=== PATIENT | male | born 1935 | race Caucasian/White ===

== ENCOUNTER 2019-07-11 17:06 | Inpatient (IN) | payer OTHER, MEDICARE ==
[~2019-07-11 17:06] MED LIST: CEFEPIME HCL/D5W 2 GM/50 ML BAG IVPB ONE
--- NOTE | 2019-07-11 17:42 | PDOC ---
History of Present Illness - General Chief Complaint: Respiratory Distress Stated Complaint: PNEUMONIA Time Seen by Provider: 07/11/19 17:41 - History of Present Illness Initial Comments: 07/11/19 20:54 83 year old man with no pmhx who presents with 2 weeks of cough productive of porter phlegm, congestion, shortness of breath. Took a zpak 1 week ago with some improvement of symptoms but then worsening shortness of breath today. Went to [facility] urgent care and had cxr that showed pneumonia and was told to come to the ED. The patient denies any fever, denies chest pain, n/v/d/c or abd pain. ROS GENERAL/CONSTITUTIONAL: No fever or chills. No weakness. HEAD, EYES, EARS, NOSE AND THROAT: No change in vision. No ear pain or discharge. No sore throat. CARDIOVASCULAR: No chest pain , +shortness of breath RESPIRATORY: + cough, No wheezing, or hemoptysis. GASTROINTESTINAL: No nausea, vomiting, diarrhea or constipation. GENITOURINARY: No dysuria, frequency, or change in urination. MUSCULOSKELETAL: No joint or muscle swelling or pain. No neck or back pain. SKIN: No rash NEUROLOGIC: No headache, vertigo, loss of consciousness, or change in strength/ sensation. PE GENERAL: Awake, alert, and fully oriented, in no acute distress HEAD: No signs of trauma, normocephalic, atraumatic EYES: EOMI, sclera anicteric, conjunctiva clear ENT: oropharynx clear without exudates. Moist mucosa NECK: Normal ROM, supple LUNGS: No distress, speaks full sentences, + decreased breath sounds on the R side HEART: Regular rate and rhythm, normal S1 and S2, no murmurs, rubs or gallops, peripheral pulses normal and equal bilaterally. ABDOMEN: Soft, nontender. No guarding, no rebound. No masses EXTREMITIES : Normal inspection, Normal range of motion, no edema. No clubbing or cyanosis. NEUROLOGICAL: Cranial nerves II through XII grossly intact. Normal speech, no focal sensorimotor deficits SKIN: Warm, Dry, normal turgor, no rashes or lesions noted MDM DDX including but not limited to: pna ED Course: Sisi Owusu, PGY2 Emergency Medicine 07/11/19 22:11 Past History - Past Medical History Allergies/Adverse Reactions: Allergies Allergy/AdvReac Type Severity Reaction Status Date / Time Penicillins AdvReac Severe Difficulty Verified 08/08/16 13:21 Breathing Home Medications: Ambulatory Orders Aspirin [ASA -] 81 mg PO DAILY 08/08/16 COPD: No - Immunization History Immunization Up to Date: No - Psycho Social/Smoking Cessation Hx Smoking History: Never smoked Have you smoked in the past 12 months: No Hx Alcohol Use: Yes (socially) Drug/Substance Use Hx: No Substance Use Type: None *Physical Exam - Vital Signs Last Vital Signs Temp Pulse Resp BP Pulse Ox 98.8 F 98 H 30 H 129/79 93 L 07/11/19 17:15 07/11/19 17:15 07/11/19 17:15 07/11/19 17:15 07/11/19 17:15 ED Treatment Course - LABORATORY CBC & Chemistry Diagram: 07/11/19 18:15 07/11/19 18:15
--- NOTE | 2019-07-11 18:16 | PDOC ---
Attending Attestation - Resident Resident Name: Sisi Owusu - ED Attending Attestation I have performed the following: I have examined & evaluated the patient, The case was reviewed & discussed with the resident, I agree w/resident's findings & plan - HPI HPI: 07/11/19 18:26 83yo male with cough x 1.5 weeks. Treated with a zpak as outpt last weekend. States drinking chicken noodle soup all week without improvement. Today less coughing, but still not feeling better so he went to urgent care that told him he had pna on cxr and sent him to the ER for iv abx given pt had already been treated with oral abx for this infection. Pt denies f/c. NO cp. States sob today improved. Pt denies rhinorrhea or sore throat. No abd pain. No n/v/d. No dysuria. No other complaints. Pt speaking in full clear symptoms. - Physicial Exam PE: 07/11/19 18:28 Gen: aaox3, nad heart: +s1s2 reg lungs: wheezing L base abd: soft, nt/nd +bs ext: no c/c/e - Medical Decision Making 07/11/19 18:29 a/p: 83yo male with pna that failed outpt therapy -will send labs, cultures -will give nebs for wheezing -will start iv abx -will monitor and reassess 07/11/19 18:56 cxr shows RLL infiltrate 07/11/19 18:57 no elevated wbc cefepime and vanco ordered microblog sent to [facility] for admission 07/11/19 19:17 pt will be admitted for pna that failed outpt therapy Heart Score/ECG Review - ECG Intrepretation Comment:: 07/11/19 18:26 sinus at 93, nl axis, nl interval, no acute st/t wave findings
[2019-07-11] MEDS ORDERED: ALBUTEROL SO4 2.5/IPRATROPIUM 0.5 INH SOL 3 ML VIAL.NEB. NEB ONE ×2 (18:25→18:42)
[2019-07-11 18:45] LABS: VENOUS PC02 40.7 mmHg (38-52); VENOUS PH 7.41 (7.31-7.41)
[2019-07-11 18:46] LABS: BASO % 0.4 % (0-2.0); EOS % 0.3 % (0-4.5); HEMATOCRIT 37.3 % (35.4-49); LYMPH % 7.8 % (8-40); MEAN CELL VOLUME 97.1 fl (80-96); MEAN PLT VOLUME 7.3 fl (7.5-11.1); MONO % 6.2 % (3.8-10.2); NEUT % 85.3 % (42.8-82.8); PLATELET COUNT 418 K/MM3 (134-434); RBC 3.84 M/mm3 (4.00-5.60); RDW 13.1 % (11.9-15.9); WHITE BLOOD COUNT 9.2 K/mm3 (4.0-10.0)
[2019-07-11 18:47] LABS: VENOUS PO2 < 49 mmHg (28-48)
[2019-07-11] MEDS ORDERED: CEFEPIME HCL/D5W 2 GM/50 ML BAG IVPB ONE (19:04)
[2019-07-11] MEDS ORDERED: VANCOMYCIN 1 GM PREMIX - 1 GM/200 ML BAG IVPB ONE (19:04)
[2019-07-11 19:17] LABS: ALBUMIN 2.7 g/dl (3.4-5.0); BILIRUBIN,TOTAL 0.5 mg/dL (0.2-1); BLOOD UREA NITROGEN 22.9 mg/dL (7-18); CREATININE 1.1 mg/dL (0.55-1.3); POTASSIUM 3.9 mmol/L (3.5-5.1); TOT PROT 6.6 g/dl (6.4-8.2)
[2019-07-11] MEDS ORDERED: CEFEPIME 2 GM/100 ML BAG IVPB ONE (19:40)
[2019-07-11] MEDS ORDERED: VANCOMYCIN 1 GRAM (PRE-DOCKED) 1,000 MG/250 ML BAG IVPB ONE (19:40)
[2019-07-11] MEDS ORDERED: ALBUTEROL SO4 0.083% IH SOL 2.5 MG/3 ML VIAL.NEB. NEB PRN (20:36)
--- NOTE | 2019-07-11 20:40 | HP ---
CHIEF COMPLAINT: shortness of breath and cough PCP: HISTORY OF PRESENT ILLNESS: Patient is a 83 y/o male with no past medical history who presents for cough and feeling run down. Patient has been having this productive cough for two weeks. Last week patient received a zpak but his symptoms did not resolve. Patient went to urgent care today has an xray done, was told he had a pneumonia. Patient denies fevers, chills, nausea, or vomiting. Only has a persistent cough. no recent travel. ER course was notable for: (1) Cefepime, Vanc (2) (3) Recent Travel: denies PAST MEDICAL HISTORY: denies PAST SURGICAL HISTORY: 9 retinal tear surgeries Social History: Smoking: denies Alcohol: socially drinks wine Drugs: denies Allergies Penicillins Adverse Reaction (Severe, Verified 08/08/16 13:21) Difficulty Breathing HOME MEDICATIONS: Home Medications Medication Instructions Recorded Aspirin [ASA -] 81 mg PO DAILY 08/08/16 REVIEW OF SYSTEMS CONSTITUTIONAL: Absent: fever, chills, diaphoresis, generalized weakness, malaise, loss of appetite, weight change HEENT: Absent: rhinorrhea, nasal congestion, throat pain, throat swelling, difficulty swallowing, mouth swelling, ear pain, eye pain, visual changes CARDIOVASCULAR: Absent: chest pain, syncope, palpitations, irregular heart rate, lightheadedness , peripheral edema RESPIRATORY: cough Absent: , shortness of breath, dyspnea with exertion, orthopnea, wheezing, stridor, hemoptysis GASTROINTESTINAL: Absent: abdominal pain, abdominal distension, nausea, vomiting, diarrhea, constipation, melena, hematochezia GENITOURINARY: Absent: dysuria, frequency, urgency, hesitancy, hematuria, flank pain, genital pain MUSCULOSKELETAL: Absent: myalgia, arthralgia, joint swelling, back pain, neck pain SKIN: Absent: rash, itching, pallor HEMATOLOGIC/IMMUNOLOGIC: Absent: easy bleeding, easy bruising, lymphadenopathy, frequent infections ENDOCRINE: Absent: unexplained weight gain, unexplained weight loss, heat intolerance, cold intolerance NEUROLOGIC: Absent: headache, focal weakness or paresthesias, dizziness, unsteady gait, seizure, mental status changes, bladder or bowel incontinence PSYCHIATRIC: Absent: anxiety, depression, suicidal or homicidal ideation, hallucinations. PHYSICAL EXAMINATION Vital Signs - 24 hr 07/11/19 17:15 Temperature 98.8 F Pulse Rate 98 H Respiratory 30 H Rate Blood Pressure 129/79 O2 Sat by Pulse 95 Oximetry (%) GENERAL: Awake, alert, and fully oriented, in no acute distress. HEAD: Normal with no signs of trauma. EYES: Pupils equal, round and reactive to light, extraocular movements intact, EARS, NOSE, THROAT: Moist mucous membranes. LUNGS: Breath sounds equal, clear to auscultation bilaterally. No wheezes, and no crackles. No accessory muscle use. HEART: Regular rate and rhythm, normal S1 and S2 without murmur, rub or gallop. ABDOMEN: Soft, nontender, not distended, normoactive bowel sounds, no guarding MUSCULOSKELETAL: No CVA tenderness. LOWER EXTREMITIES: 2+ pulses, warm, well-perfused. No calf tenderness. No peripheral edema. SKIN: Warm, dry, normal turgor, no rashes or lesions noted, normal capillary refill. CBC, BMP 07/11/19 18:15 07/11/19 18:15 ASSESSMENT/PLAN: Patient is a 83 y/o male with no past medical history who presents for cough and feeling run down. #RLL pneumonia - failed out patient therapy - PCN allgx, will treat with Levaquin 750 daily, QTC 445 - duonebs - f/u flu swab - urine legionella and PNA - f/u blood cx and ucx - f/u sputum cx - CXR from [facility]: RLL PNA #DVT ppx - lovenx 40 sq daily FEN - regular diet Dispo: monitor on med surg Visit type - Emergency Visit Emergency Visit: Yes ED Registration Date: 07/11/19 Care time: The patient presented to the Emergency Department on the above date and was hospitalized for further evaluation of their emergent condition. - New Patient This patient is new to me today: Yes Date on this admission: 07/12/19 - Critical Care Critical Care patient: No ATTENDING PHYSICIAN STATEMENT I saw and evaluated the patient. I reviewed the resident's note and discussed the case with the resident. I agree with the resident's findings and plan as documented. SUBJECTIVE: OBJECTIVE: ASSESSMENT AND PLAN:
--- NOTE | 2019-07-11 21:43 | PN ---
Teaching Attending Note Name of Resident: Leanne Blanchard ATTENDING PHYSICIAN STATEMENT I saw and evaluated the patient. I reviewed the resident's note and discussed the case with the resident. I agree with the resident's findings and plan as documented. SUBJECTIVE: 83-year-old male with no reported past medical history complaint of cough and general malaise for about 2 weeks which has been progressively worsening. 1 week ago he received a prescription for Z-Josue from his PCP which he has been taking however his symptoms have not resolved. Today he went to urgent care center and had a chest x-ray performed and was told he had a pneumonia so he presented to hospital. In the emergency room he received cefepime and vancomycin. OBJECTIVE: Last Vital Signs Temp Pulse Resp BP Pulse Ox 98.8 F 98 H 30 H 129/79 95 07/11/19 17:15 07/11/19 17:15 07/11/19 17:15 07/11/19 17:15 07/11/19 17:15 GENERAL: Well developed, well nourished. Awake and alert. No acute distress. HEENT: Normocephalic, atraumatic. PERRLA, EOMI. No conjunctival pallor. Sclera are non- icteric. Moist mucous membranes. Oropharynx is clear. NECK: Supple. Full ROM. No JVD. Carotid pulses 2+ and symmetric, without bruits. No thyromegaly. No lymphadenopathy. CARDIOVASCULAR: Regular rate and rhythm. No murmurs, rubs, or gallops. Distal pulses are 2+ and symmetric. PULMONARY: No evidence of respiratory distress. Lungs clear to auscultation bilaterally. No wheezing, rales or rhonchi. ABDOMINAL: Soft. Non-tender. Non-distended. No rebound or guarding. No organomegaly. Normoactive bowel sounds. MUSCULOSKELETAL Normal range of motion at all joints. No bony deformities or tenderness. No CVA tenderness. EXTREMITIES: No cyanosis. No clubbing. No edema. No calf tenderness. SKIN: Warm and dry. Normal capillary refill. No rashes. No jaundice. PSYCHIATRIC: Cooperative. Good eye contact. Appropriate mood and affect. Abnormal Lab Results 07/11/19 07/11/19 07/11/19 18:15 18:15 18:15 RBC 3.84 L MCV 97.1 H MCH 34.0 H MPV 7.3 L Neutrophils % 85.3 H Lymphocytes % 7.8 L POC VBG pO2 < 49 H VBG O2 Sat (Ari) 43.6 L Sodium 134 L Chloride 97 L Anion Gap 7 L BUN 22.9 H Random Glucose 114 H Albumin 2.7 L Imaging reviewed, chest x-ray was noted to have right lower lobe infiltrate ASSESSMENT AND PLAN: 83-year-old man with community-acquired pneumonia. Appears to have right lower lobe infiltrate on his chest x-ray. Neutrophilic predominance on CBC. Noted to have hyponatremia which may be SIADH secondary to his acute lung infection. Hypoalbuminemia present. Admit to [facility] Levaquin 750 mg IV daily Influenza swab Blood cultures Sputum culture Urine Legionella antigen Supplemental oxygen as needed A1c Heparin subcutaneous for DVT prophylaxis
[2019-07-11 22:59] LABS: EPI CELLS 0.6 /HPF (0-5/HPF); HYALINE CASTS 5 /lpf (0-8); PH,URINE 5.5 (5.0-8.0); URINE APPEARANCE CLEAR; URINE BACTERIA 0.5 /hpf (NEGATIVE); URINE BILIRUBIN NEGATIVE (NEGATIVE); URINE COLOR YELLOW; URINE GLUCOSE (UA) NEGATIVE (NEGATIVE); URINE KETONE NEGATIVE (NEGATIVE); URINE LEUK ESTERASE NEGATIVE (NEGATIVE); URINE NITRITE NEGATIVE (NEGATIVE); URINE PROTEIN TRACE (NEGATIVE); URINE RBC 12 /hpf (0-4); URINE UROBILINOGEN 0.2 mg/dL (0.2-1.0); URINE WBC 2 /hpf (0-5)
[2019-07-12 01:52] VITALS: BMI 23.2
[2019-07-12] MEDS ORDERED: CEFEPIME HCL/D5W 2 GM/50 ML BAG IVPB SCH (02:00)
[2019-07-12] MEDS ORDERED: CEFEPIME 2 GM in DEXTROSE 5%-WATER 100 ML IVPB ONE (02:00)
[2019-07-12 06:43] LABS: HEMATOCRIT 37.2 % (35.4-49); LYMPH % 13.2 % (8-40); MCH 34.1 pg (25.7-33.7); MEAN CELL VOLUME 97.4 fl (80-96); MEAN PLT VOLUME 7.2 fl (7.5-11.1); MONO % 7.2 % (3.8-10.2); NEUT % 77.6 % (42.8-82.8); PLATELET COUNT 420 K/MM3 (134-434); RBC 3.82 M/mm3 (4.00-5.60); RDW 13.4 % (11.9-15.9); WHITE BLOOD COUNT 8.7 K/mm3 (4.0-10.0)
[2019-07-12 07:40] LABS: ALBUMIN 2.6 g/dl (3.4-5.0); BILIRUBIN,TOTAL 1.4 mg/dL (0.2-1); BLOOD UREA NITROGEN 18.8 mg/dL (7-18); CALCIUM 8.9 mg/dL (8.5-10.1); CREATININE 0.9 mg/dL (0.55-1.3); MAGNESIUM 2.4 mg/dL (1.8-2.4); PHOSPHOROUS 3.3 mg/dL (2.5-4.9); POTASSIUM 3.8 mmol/L (3.5-5.1); TOT PROT 6.8 g/dl (6.4-8.2)
[2019-07-12] MEDS ORDERED: CEFTRIAXONE 1 GM in DEXTROSE 5%-WATER - 50 ML IVPB SCH (10:00)
[2019-07-12] MEDS ORDERED: AZITHROMYCIN IVPB 500 MG in DEXTROSE 5%-WATER - 250 ML IVPB SCH (10:00)
[2019-07-12] MEDS: guaiFENesin 200 MG/10 ML 10 ML UNIT-DOSE CUPS PO PRN ×2 (11:13→13:43)
[2019-07-12] MEDS: ENOXAPARIN NA (PORCINE) 40 MG/0.4 ML DISP.SYRIN SQ SCH (11:13)
--- NOTE | 2019-07-12 13:37 | PN ---
Physical Exam: SUBJECTIVE: Patient seen and examined he is better and no fever or chills he has cough but it is dry no fever or chills today he has good appetite OBJECTIVE: Vital Signs Period Temp Pulse Resp BP Sys/Coreas Pulse Ox Last 24 Hr 97.6 F-98.8 F 79-98 18-30 126-142/73-79 93-97 GENERAL: The patient is awake, alert, and fully oriented, in no acute distress. HEAD: Normal with no signs of trauma. EYES: PERRL, extraocular movements intact, sclera anicteric, conjunctiva clear. No ptosis. ENT: Ears normal, nares patent, oropharynx clear without exudates, moist mucous membranes. NECK: Trachea midline, full range of motion, supple. LUNGS: Breath sounds equal, clear to auscultation bilaterally, no wheezes, no crackles, no accessory muscle use. coarse bs bilateral HEART: Regular rate and rhythm, S1, S2 without murmur, rub or gallop. ABDOMEN: Soft, nontender, nondistended, normoactive bowel sounds, no guarding, no rebound, no hepatosplenomegaly, no masses. EXTREMITIES: 2+ pulses, warm, well-perfused, no edema. NEUROLOGICAL: Cranial nerves II through XII grossly intact. Normal speech, Laboratory Results - last 24 hr 07/11/19 07/11/19 07/11/19 18:15 18:15 18:15 WBC 9.2 RBC 3.84 L Hgb 13.0 Hct 37.3 MCV 97.1 H MCH 34.0 H MCHC 35.0 RDW 13.1 Plt Count 418 MPV 7.3 L Absolute Neuts (auto) 7.9 Neutrophils % 85.3 H Lymphocytes % 7.8 L Monocytes % 6.2 Eosinophils % 0.3 Basophils % 0.4 Nucleated RBC % 0 VBG pH POC VBG pCO2 POC VBG pO2 VBG HCO3 VBG O2 Sat (Ari) VBG Base Excess Sodium 134 L Potassium 3.9 Chloride 97 L Carbon Dioxide 29 Anion Gap 7 L BUN 22.9 H Creatinine 1.1 Est GFR (CKD-EPI)AfAm 71.07 Est GFR (CKD-EPI)NonAf 61.32 Random Glucose 114 H Lactic Acid 1.0 Calcium 9.0 Phosphorus Magnesium Total Bilirubin 0.5 AST 29 ALT 46 Alkaline Phosphatase 82 Total Protein 6.6 Albumin 2.7 L Urine Color Urine Appearance Urine pH Ur Specific Ferguson Urine Protein Urine Glucose (UA) Urine Ketones Urine Blood Urine Nitrite Urine Bilirubin Urine Urobilinogen Ur Leukocyte Esterase Urine WBC (Auto) Urine RBC (Auto) Urine Casts (Auto) U Epithel Cells (Auto) Urine Bacteria (Auto) Influenza A (Rapid) Influenza B (Rapid) 07/11/19 07/11/19 07/12/19 18:15 22:30 00:20 WBC RBC Hgb Hct MCV MCH MCHC RDW Plt Count MPV Absolute Neuts (auto) Neutrophils % Lymphocytes % Monocytes % Eosinophils % Basophils % Nucleated RBC % VBG pH 7.41 POC VBG pCO2 40.7 POC VBG pO2 < 49 H VBG HCO3 25.0 VBG O2 Sat (Ari) 43.6 L VBG Base Excess 0.8 Sodium Potassium Chloride Carbon Dioxide Anion Gap BUN Creatinine Est GFR (CKD-EPI)AfAm Est GFR (CKD-EPI)NonAf Random Glucose Lactic Acid Calcium Phosphorus Magnesium Total Bilirubin AST ALT Alkaline Phosphatase Total Protein Albumin Urine Color Yellow Urine Appearance Clear Urine pH 5.5 Ur Specific Ferguson 1.028 Urine Protein Trace Urine Glucose (UA) Negative Urine Ketones Negative Urine Blood 3+ H Urine Nitrite Negative Urine Bilirubin Negative Urine Urobilinogen 0.2 Ur Leukocyte Esterase Negative Urine WBC (Auto) 2 Urine RBC (Auto) 12 Urine Casts (Auto) 5 U Epithel Cells (Auto) 0.6 Urine Bacteria (Auto) 0.5 Influenza A (Rapid) Negative Influenza B (Rapid) Negative 07/12/19 07/12/19 05:54 05:58 WBC 8.7 RBC 3.82 L Hgb 13.0 Hct 37.2 MCV 97.4 H MCH 34.1 H MCHC 35.0 RDW 13.4 Plt Count 420 MPV 7.2 L Absolute Neuts (auto) 6.8 Neutrophils % 77.6 Lymphocytes % 13.2 D Monocytes % 7.2 Eosinophils % 1.0 D Basophils % 1.0 Nucleated RBC % 0 VBG pH POC VBG pCO2 POC VBG pO2 VBG HCO3 VBG O2 Sat (Ari) VBG Base Excess Sodium 134 L Potassium 3.8 Chloride 97 L Carbon Dioxide 29 Anion Gap 8 BUN 18.8 H Creatinine 0.9 Est GFR (CKD-EPI)AfAm 90.58 Est GFR (CKD-EPI)NonAf 78.15 Random Glucose 102 Lactic Acid Calcium 8.9 Phosphorus 3.3 Magnesium 2.4 Total Bilirubin 1.4 H AST 26 ALT 44 Alkaline Phosphatase 86 Total Protein 6.8 Albumin 2.6 L Urine Color Urine Appearance Urine pH Ur Specific Ferguson Urine Protein Urine Glucose (UA) Urine Ketones Urine Blood Urine Nitrite Urine Bilirubin Urine Urobilinogen Ur Leukocyte Esterase Urine WBC (Auto) Urine RBC (Auto) Urine Casts (Auto) U Epithel Cells (Auto) Urine Bacteria (Auto) Influenza A (Rapid) Influenza B (Rapid) Active Medications Generic Name Dose Route Start Last Admin Trade Name Freq PRN Reason Stop Dose Admin Albuterol Sulfate 1 amp 07/11/19 20:36 Ventolin 0.083% Nebulizer Soln - NEB Q4H PRN SHORT OF BREATH/WHEEZING Enoxaparin Sodium 40 mg 07/12/19 10:00 07/12/19 11:13 Lovenox - SQ Not Given DAILY [facility] Guaifenesin 10 ml 07/12/19 08:23 07/12/19 11:13 Robitussin - PO 10 ml Q4H PRN Administration COUGH Levofloxacin 750 mg in 150 mls @ 100 mls/hr 07/12/19 13:00 Levaquin 750 Mg Premixed Ivpb - IVPB DAILY [facility] Protocol ASSESSMENT/PLAN: Patient is a 83 y/o male with no past medical history who presents for cough and feeling run down. RLL pneumonia - failed out patient therapy - PCN allgx, will treat with Levaquin 750 daily, - duonebs - f/u flu swab - urine legionella and PNA - f/u blood cx and ucx - f/u sputum cx - CXR ordered repeat - add robitusin prn for cough Visit type - Emergency Visit Emergency Visit: Yes ED Registration Date: 07/11/19 Care time: The patient presented to the Emergency Department on the above date and was hospitalized for further evaluation of their emergent condition. - New Patient This patient is new to me today: Yes Date on this admission: 07/12/19 - Critical Care Critical Care patient: No - Discharge Referral Referred to [facility] Med P.C.: No
[2019-07-12] MEDS ORDERED: MAG HYDROX/AL HYDROX/SIMETH 30 ML UNIT-DOSE CUP PO ONE (13:42)
[2019-07-12] MEDS ORDERED: LACTOBACILLUS ACIDOPHILUS 1 TABLET PO ONE (22:30)
[2019-07-12] MEDS ORDERED: PT OWN MED DRAWER 7, Y5N ONE (23:20)
[2019-07-13] MEDS: LACTOBACILLUS ACIDOPHILUS 1 TABLET PO SCH ×2 (08:42→09:55)
[2019-07-13] MEDS: ENOXAPARIN NA (PORCINE) 40 MG/0.4 ML DISP.SYRIN SQ SCH (09:53)
--- NOTE | 2019-07-13 10:22 | EKG ---
Test Reason : Blood Pressure : / mmHG Vent. Rate : 093 BPM Atrial Rate : 093 BPM P-R Int : 156 ms QRS Dur : 084 ms QT Int : 358 ms P-R-T Axes : 067 056 064 degrees QTc Int : 445 ms NORMAL SINUS RHYTHM NORMAL ECG NO PREVIOUS ECGS AVAILABLE Confirmed by DINORA TIWARI MD ([id number]) on 07/13/2019 10:21:39 AM Referred By: Confirmed By:DINORA TIWARI MD
--- NOTE | 2019-07-13 11:11 | PN ---
Physical Exam: SUBJECTIVE: Patient seen and examined. Cough is improving. He denies SOB. OBJECTIVE: Vital Signs Period Temp Pulse Resp BP Sys/Coreas Pulse Ox Last 24 Hr 97.7 F-98.6 F 78-84 20-20 123-140/64-80 98 GENERAL: The patient is awake, alert, and fully oriented, in no acute distress. LUNGS: Breath sounds equal, clear to auscultation bilaterally, no wheezes, no crackles, no accessory muscle use. HEART: Regular rate and rhythm, S1, S2 without murmur, rub or gallop. ABDOMEN: Soft, nontender, nondistended, normoactive bowel sounds, no guarding, no rebound, no hepatosplenomegaly, no masses. EXTREMITIES: 2+ pulses, warm, well-perfused, no edema. Active Medications Generic Name Dose Route Start Last Admin Trade Name Freq PRN Reason Stop Dose Admin Albuterol Sulfate 1 amp 07/11/19 20:36 Ventolin 0.083% Nebulizer Soln - NEB Q4H PRN SHORT OF BREATH/WHEEZING Enoxaparin Sodium 40 mg 07/12/19 10:00 07/13/19 09:53 Lovenox - SQ Not Given DAILY [facility] Guaifenesin 10 ml 07/12/19 08:23 07/12/19 13:43 Robitussin - PO 10 ml Q4H PRN Administration COUGH Levofloxacin 750 mg in 150 mls @ 100 mls/hr 07/12/19 13:00 07/13/19 09:47 Levaquin 750 Mg Premixed Ivpb - IVPB 100 mls/hr DAILY [facility] Administration Protocol Lactobacillus Acidophilus 1 tab 07/13/19 10:00 07/13/19 09:55 Bacid - PO Not Given DAILY [facility] ASSESSMENT/PLAN: This is an 83 year old man with no past medical history who presented to the ED with productive cough and shortness of breath. 1. Sepsis (tachypnea, tachycardia) secondary to pneumonia - Afebrile; tachypnea, tachycardia improved - Failed outpatient therapy for pneumonia with azithromycin - Blood cultures negative after 24 hours - Urine Legionella, Pneumococcus Ag negative - Continue Levaquin 2. Hyponatremia, mild - Stable Visit type - Emergency Visit Emergency Visit: Yes ED Registration Date: 07/11/19 Care time: The patient presented to the Emergency Department on the above date and was hospitalized for further evaluation of their emergent condition. - New Patient This patient is new to me today: Yes Date on this admission: 07/13/19 - Critical Care Critical Care patient: No - Discharge Referral Referred to [facility] Med P.C.: No
[2019-07-13] MEDS: guaiFENesin 200 MG/10 ML 10 ML UNIT-DOSE CUPS PO PRN ×2 (11:46→20:31)
--- NOTE | 2019-07-14 08:04 | PN ---
Progress Note (short form) - Note Progress Note: HPI: Pt with improvement of cough, however notes productivity has decreased. SOB improved markedly. No fevers or chills overnight. No other events or complaints today. Vital Signs Temperature 97.6 F 07/14/19 14:00 Pulse Rate 88 07/14/19 14:00 Respiratory Rate 20 07/14/19 14:00 Blood Pressure 102/76 07/14/19 14:00 O2 Sat by Pulse Oximetry (%) 96 07/14/19 09:00 PE: GEN: NAD, awake, alert, oriented x3 HEENT: NC/AT, CLARI, MMM Neck: No JVD LUNGS: minimal rhonchi appreciated, no wheezes, no accessory muscle use. On RA CARD: RRR no murmurs appreciated ABD: Soft, NT/ND, normoactive BS Ext: No edema, well-perfused Skin: No rashes or lesions appreciated CBC, BMP 07/14/19 07:15 07/14/19 07:15 Microbiology 07/11/19 18:15 Blood - Peripheral Venous Blood Culture - Preliminary NO GROWTH OBTAINED AFTER 48 HOURS, INCUBATION TO CONTINUE FOR 3 DAYS. 07/11/19 18:15 Blood - Peripheral Venous Blood Culture - Preliminary NO GROWTH OBTAINED AFTER 48 HOURS, INCUBATION TO CONTINUE FOR 3 DAYS. 07/11/19 22:30 Urine - Urine Clean Catch Urine Culture - Final NO GROWTH OBTAINED 07/11/19 22:30 Urine For Antigen Detection Legionella Antigen - Final 07/11/19 22:30 Urine For Antigen Detection Streptococcus pneumoniae Antigen (M - Final Active Medications Albuterol Sulfate (Ventolin 0.083% Nebulizer Soln -) 1 amp NEB Q4H PRN PRN Reason: SHORT OF BREATH/WHEEZING Enoxaparin Sodium (Lovenox -) 40 mg SQ DAILY [facility] Last Admin: 07/14/19 09:32 Dose: Not Given Guaifenesin (Robitussin -) 10 ml PO Q4H PRN PRN Reason: COUGH Last Admin: 07/13/19 20:31 Dose: 10 ml Levofloxacin (Levaquin 750 Mg Premixed Ivpb -) 750 mg in 150 mls @ 100 mls/hr IVPB DAILY [facility]; Protocol Last Admin: 07/14/19 09:31 Dose: 100 mls/hr Lactobacillus Acidophilus (Bacid -) 1 tab PO DAILY [facility] Last Admin: 07/14/19 09:31 Dose: 1 tab Assessment and Plan: Sepsis 2/2 Community-Acquired Pneumonia Failure of Outpatient Therapy Mild Hyponatremia (resolved) --Pt clinical status improved with no notable culture reports as above --Levaquin IVPB to continue today and will transition to oral ABX tomorrow with d/c planning --Albuterol q4h PRN nebulizers available for any reoccurrence of wheezing --No need for corticosteroids at this point FEN: Fluids: PO encouraged Electrolyte abnormalities: Resolved Nutrition: Regular diet PPX: DVT - Lovenox SQ daily GI - Not indicated Dispo: D/c anticipated in 24h Case discussed with Dr. Romana Leong, DO - IM PGy-3
[2019-07-14 08:07] LABS: BASO % 0.7 % (0-2.0); EOS % 3.5 % (0-4.5); HEMATOCRIT 39.2 % (35.4-49); HEMOGLOBIN 13.3 GM/dL (11.7-16.9); MCH 32.7 pg (25.7-33.7); MCHC 33.9 g/dl (32.0-35.9); MEAN CELL VOLUME 96.7 fl (80-96); MEAN PLT VOLUME 7.1 fl (7.5-11.1); MONO % 6.8 % (3.8-10.2); PLATELET COUNT 439 K/MM3 (134-434); RBC 4.06 M/mm3 (4.00-5.60); RDW 13.3 % (11.9-15.9); WHITE BLOOD COUNT 5.7 K/mm3 (4.0-10.0)
[2019-07-14 08:35] LABS: ALBUMIN 2.5 g/dl (3.4-5.0); BILIRUBIN,DIRECT 0.1 mg/dL (0.0-0.2); BILIRUBIN,TOTAL 0.3 mg/dL (0.2-1); CALCIUM 8.9 mg/dL (8.5-10.1); CREATININE 0.9 mg/dL (0.55-1.3); TOT PROT 6.6 g/dl (6.4-8.2)
[2019-07-14] MEDS: LACTOBACILLUS ACIDOPHILUS 1 TABLET PO SCH (09:31)
[2019-07-14] MEDS: ENOXAPARIN NA (PORCINE) 40 MG/0.4 ML DISP.SYRIN SQ SCH (09:32)
--- NOTE | 2019-07-14 16:28 | PN ---
Teaching Attending Note Name of Resident: Boone Leong ATTENDING PHYSICIAN STATEMENT I saw and evaluated the patient. I reviewed the resident's note and discussed the case with the resident. I agree with the resident's findings and plan as documented. SUBJECTIVE: Patient feels much better. He denies cough, SOB. OBJECTIVE: Vital Signs Period Temp Pulse Resp BP Sys/Coreas Pulse Ox Last 24 Hr 97.6 F-98.2 F 76-88 20-20 102-132/61-79 95-96 HEART: S1S2, RRR LUNGS: Clear ABDOMEN: Soft, non-tender, non-distended, normal BS EXTREMITIES: No edema Laboratory Results - last 24 hr 07/14/19 07/14/19 07:15 07:15 WBC 5.7 RBC 4.06 Hgb 13.3 Hct 39.2 MCV 96.7 H MCH 32.7 MCHC 33.9 RDW 13.3 Plt Count 439 H MPV 7.1 L Absolute Neuts (auto) 3.9 Neutrophils % 68.0 Lymphocytes % 21.0 D Monocytes % 6.8 Eosinophils % 3.5 D Basophils % 0.7 Nucleated RBC % 0 Sodium 136 Potassium 4.0 Chloride 99 Carbon Dioxide 31 Anion Gap 6 L BUN 15.0 Creatinine 0.9 Est GFR (CKD-EPI)AfAm 90.58 Est GFR (CKD-EPI)NonAf 78.15 Random Glucose 98 Calcium 8.9 Total Bilirubin 0.3 Direct Bilirubin 0.1 AST 25 ALT 46 Alkaline Phosphatase 82 Total Protein 6.6 Albumin 2.5 L Current Medications Generic Name Dose Route Start Last Admin Trade Name Freq PRN Reason Stop Dose Admin Albuterol Sulfate 1 amp 07/11/19 20:36 Ventolin 0.083% Nebulizer Soln - NEB Q4H PRN SHORT OF BREATH/WHEEZING Enoxaparin Sodium 40 mg 07/12/19 10:00 07/14/19 09:32 Lovenox - SQ Not Given DAILY LAURA Guaifenesin 10 ml 07/12/19 08:23 07/13/19 20:31 Robitussin - PO 10 ml Q4H PRN Administration COUGH Levofloxacin 750 mg in 150 mls @ 100 mls/hr 07/12/19 13:00 07/14/19 09:31 Levaquin 750 Mg Premixed Ivpb - IVPB 100 mls/hr DAILY LAURA Administration Protocol Lactobacillus Acidophilus 1 tab 07/13/19 10:00 07/14/19 09:31 Bacid - PO 1 tab DAILY LAURA Administration ASSESSMENT AND PLAN: This is an 83 year old man with no past medical history who presented to the ED with productive cough and shortness of breath. 1. Sepsis (tachypnea, tachycardia) secondary to pneumonia - Afebrile; tachypnea, tachycardia improved - Failed outpatient therapy for pneumonia with azithromycin - Blood cultures negative after 48 hours - Urine Legionella, Pneumococcus Ag negative - Continue Levaquin 2. Hyponatremia, mild - Improved
--- NOTE | 2019-07-15 07:48 | DS ---
Physical Exam: SUBJECTIVE: Pt afebrile overnight. Cough remains, but nonproductive. OBJECTIVE: Vital Signs Period Temp Pulse Resp BP Sys/Coreas Pulse Ox Last 24 Hr 97.6 F-98.2 F 74-88 20-20 96-136/58-79 96 PHYSICAL EXAM PE: GEN: NAD, awake, alert, oriented x3 HEENT: NC/AT, CLARI, MMM Neck: No JVD LUNGS: CTA appreciated, no wheezes, no accessory muscle use. On RA CARD: RRR no murmurs appreciated ABD: Soft, NT/ND, normoactive BS Ext: No edema, well-perfused Skin: No rashes or lesions appreciated LABS Laboratory Results - last 24 hr 07/14/19 07/14/19 07:15 07:15 WBC 5.7 RBC 4.06 Hgb 13.3 Hct 39.2 MCV 96.7 H MCH 32.7 MCHC 33.9 RDW 13.3 Plt Count 439 H MPV 7.1 L Absolute Neuts (auto) 3.9 Neutrophils % 68.0 Lymphocytes % 21.0 D Monocytes % 6.8 Eosinophils % 3.5 D Basophils % 0.7 Nucleated RBC % 0 Sodium 136 Potassium 4.0 Chloride 99 Carbon Dioxide 31 Anion Gap 6 L BUN 15.0 Creatinine 0.9 Est GFR (CKD-EPI)AfAm 90.58 Est GFR (CKD-EPI)NonAf 78.15 Random Glucose 98 Calcium 8.9 Total Bilirubin 0.3 Direct Bilirubin 0.1 AST 25 ALT 46 Alkaline Phosphatase 82 Total Protein 6.6 Albumin 2.5 L IMAGING: CXR performed at urgent care and provided upon admission not in EMR system at time of d/c summary. RLL infiltrative process noted. HOSPITAL COURSE: Date of Admission:07/11/19 Date of Discharge: 07/15/19 Pt admitted on 07/11/19 due to community-acquired pneumonia with failure of outpatient Z-tiffanie. Pt was treated with IV levaquin and cough was managed with guaifenessin. Pt was transitioned to oral antibiotics and did not require oxygen on RA (98% on RA even with ambulation around room). Pt is being discharged today in stable condition with instructions to continue Levaquin 500mg qdaily for another 2 days. Pt requested albuterol inhaler to use PRN for any shortness of breath that develops. Pt is to follow-up with primary care clinic provided below (Dr. Eaton) for establishing care and post- hospitalization follow-up. Minutes to complete discharge: 33 Discharge Summary Problems reviewed: Yes Reason For Visit: PNEUMONIA Condition: Improved - Instructions Diet, Activity, Other Instructions: You were seen here for pneumonia. You were given IV antibiotic and improved. Today you will be switched to oral antibiotics and you can recover back at home MEDICATIONS: Please take Levaquin 500mg DAILY for another 2 days You can take over the counter Guaifenessin (also known as Mucinex) for your cough as this can help break up mucus You were also prescribed an Albuterol inhaler to use every 4 hours NEEDED for any shortness of breath or wheezing that you may have while recovering Follow-up: Please follow-up with Dr. Eaton/Dr. Leong in 3-5 days for follow-up. You will also be able to establish care at this office if you would like. Referrals: Aristides Eaton MD [Staff Physician] - (3-5 days; post-hospital f/u and establish care) Disposition: HOME - Home Medications Comprehensive Discharge Medication List: Ambulatory Orders Albuterol Sulfate [Albuterol Sulfate Hfa] 8.5 gm IH Q4H PRN #1 [email or web address] Guaifenesin [Robitussin -] 10 ml PO Q4H PRN cup 07/15/19 Levofloxacin [Levaquin] 500 mg PO DAILY #2 tablet 07/15/19 This patient is new to me today: No Emergency Visit: Yes ED Registration Date: 07/11/19 Care time: The patient presented to the Emergency Department on the above date and was hospitalized for further evaluation of their emergent condition. Critical Care patient: No - Discharge Referral Referred to [facility] No ATTENDING PHYSICIAN STATEMENT I saw and evaluated the patient. I reviewed the resident's note and discussed the case with the resident. I agree with the resident's findings and plan as documented. SUBJECTIVE: OBJECTIVE: ASSESSMENT AND PLAN:
[2019-07-15 08:04] LABS: HEMOGLOBIN 12.6 GM/dL (11.7-16.9); MCH 32.8 pg (25.7-33.7); MCHC 34.1 g/dl (32.0-35.9); MEAN CELL VOLUME 96.2 fl (80-96); MEAN PLT VOLUME 7.4 fl (7.5-11.1); PLATELET COUNT 347 K/MM3 (134-434); RBC 3.85 M/mm3 (4.00-5.60); RDW 13.4 % (11.9-15.9); WHITE BLOOD COUNT 5.8 K/mm3 (4.0-10.0)
[2019-07-15 08:38] LABS: BLOOD UREA NITROGEN 18.4 mg/dL (7-18); CALCIUM 8.6 mg/dL (8.5-10.1); CREATININE 0.8 mg/dL (0.55-1.3); POTASSIUM 4.2 mmol/L (3.5-5.1)
[2019-07-15] MEDS ORDERED: INSULIN (LEVEMIR) 100 UNITS/ML UNITS SQ ONE (09:14)
[2019-07-15] MEDS: LACTOBACILLUS ACIDOPHILUS 1 TABLET PO SCH (09:31)
[2019-07-15] MEDS: guaiFENesin 200 MG/10 ML 10 ML UNIT-DOSE CUPS PO PRN (09:31)
[2019-07-15] MEDS: ENOXAPARIN NA (PORCINE) 40 MG/0.4 ML DISP.SYRIN SQ SCH (09:31)
--- NOTE | 2019-07-15 13:03 | PN ---
Teaching Attending Note Name of Resident: Boone Leong ATTENDING PHYSICIAN STATEMENT I saw and evaluated the patient. I reviewed the resident's note and discussed the case with the resident. I agree with the resident's findings and plan as documented. SUBJECTIVE: No complaints. OBJECTIVE: Vital Signs Period Temp Pulse Resp BP Sys/Coreas Pulse Ox Last 24 Hr 97.6 F-98.2 F 74-88 18-20 96-136/58-81 HEART: S1S2, RRR LUNGS: Clear ABDOMEN: Soft, non-tender, non-distended, normal BS EXTREMITIES: No edema Laboratory Results - last 24 hr 07/15/19 07/15/19 06:25 06:25 WBC 5.8 RBC 3.85 L Hgb 12.6 Hct 37.0 MCV 96.2 H MCH 32.8 MCHC 34.1 RDW 13.4 Plt Count 347 D MPV 7.4 L Sodium 137 Potassium 4.2 Chloride 102 Carbon Dioxide 31 Anion Gap 5 L BUN 18.4 H Creatinine 0.8 Est GFR (CKD-EPI)AfAm 95.07 Est GFR (CKD-EPI)NonAf 82.03 Random Glucose 97 Calcium 8.6 Current Medications Generic Name Dose Route Start Last Admin Trade Name Freq PRN Reason Stop Dose Admin Albuterol Sulfate 1 amp 07/11/19 20:36 Ventolin 0.083% Nebulizer Soln - NEB Q4H PRN SHORT OF BREATH/WHEEZING Enoxaparin Sodium 40 mg 07/12/19 10:00 07/15/19 09:31 Lovenox - SQ Not Given DAILY LAURA Guaifenesin 10 ml 07/12/19 08:23 07/15/19 09:31 Robitussin - PO 10 ml Q4H PRN Administration COUGH Levofloxacin 750 mg in 150 mls @ 100 mls/hr 07/12/19 13:00 07/15/19 09:31 Levaquin 750 Mg Premixed Ivpb - IVPB 100 mls/hr DAILY LAURA Administration Protocol Lactobacillus Acidophilus 1 tab 07/13/19 10:00 07/15/19 09:31 Bacid - PO 1 tab DAILY LAURA Administration ASSESSMENT AND PLAN: This is an 83 year old man with no past medical history who presented to the ED with productive cough and shortness of breath. 1. Sepsis (tachypnea, tachycardia) secondary to pneumonia - Afebrile; tachypnea, tachycardia improved - Failed outpatient therapy for pneumonia with azithromycin - Blood cultures negative after 48 hours - Urine Legionella, Pneumococcus Ag negative - Continue Levaquin - change to PO at discharge 2. Hyponatremia, mild - Improved 3. Disposition - Ok for discharge home today
[2019-07-15 15:11] VITALS: BP 131/88; PULSE 83; TEMP 98.2
== END 2019-07-15 17:25 | disposition home or self-care (01) | DRG 871 ==
LOC: JER 17:06 → JERBED 19:25 → J8W 07-12 01:23
PROVIDERS: ADMIT Internal Medicine; ATTEND Internal Medicine
DX: A41.9 Sepsis, unspecified organism (principal); J18.1 Lobar pneumonia, unspecified organism; E87.1 Hypo-osmolality and hyponatremia; E88.09 Other disorders of plasma-protein metabolism, not elsewhere classified; R00.0 Tachycardia, unspecified; R06.82 Tachypnea, not elsewhere classified
CPT/HCPCS: 36415; 80048; 80053; 80076; 81003; 82803; 83605; 83735; 84100; 85025; 85027; 87040; 87086; 87804; 87899; 93005; 93010; 99284-25